=== PATIENT | male | born 1960 | race Caucasian/White ===

== ENCOUNTER 2021-09-30 07:19 | Day surgery (SDC) | payer MEDICARE, MEDICAID ==
[2021-09-22 10:12] LABS: BASOPHILS # (AUTO) 0.1 X10'3 (0-0.2); BASOPHILS % (AUTO) 1.2 % (0-1); EOSINOPHILS # (AUTO) 0.1 X10'3 (0-0.9); EOSINOPHILS % (AUTO) 2.6 % (0-6); LYMPHOCYTES # (AUTO) 1.6 X10'3 (1.1-4.8); LYMPHOCYTES % (AUTO) 29.8 % (21-51); MEAN CORPUSCULAR HEMOGLOBIN 28.6 PG (27.0-31.0); MEAN CORPUSCULAR HGB CONC 33.4 g/dL (33.0-36.5); MEAN CORPUSCULAR VOLUME 85.6 FL (78-98); MEAN PLATELET VOLUME 8.6 FL (7.4-10.4); MONOCYTES # (AUTO) 0.4 X10'3 (0-0.9); MONOCYTES % (AUTO) 6.9 % (2-12); NEUTROPHILS # (AUTO) 3.2 X10'3 (1.8-7.7); NEUTROPHILS % (AUTO) 59.5 % (42-75); PRE OP HEMATOCRIT 43.3 % (42.0-52.0); PRE OP HEMOGLOBIN 14.5 g/dL (14.0-17.9); PRE OP PLATELET COUNT 213 X10'3 (140-440); RED BLOOD COUNT 5.06 X10'6 (4.70-6.10); RED CELL DISTRIBUTION WIDTH 13.6 % (11.5-14.5)
[2021-09-22 10:24] LABS: ALBUMIN 3.8 G/DL (3.4-5.0); ALBUMIN/GLOBULIN RATIO 1.2 (1.1-1.5); ALKALINE PHOSPHATASE 44 IU/L (46-116); BLOOD UREA NITROGEN 23 MG/DL (7-18); BUN/CREATININE RATIO 17.6 (5.4-32.0); CHLORIDE 106 MMOL/L (99-107); CREATININE 1.31 MG/DL (0.60-1.10); PRE OP ALT 47 U/L (30-65); PRE OP ANION GAP 10 (8-16); PRE OP AST 29 U/L (10-37); PRE OP BILIRUB, TOTAL 0.4 MG/DL (0.0-1.0); PRE OP GLUCOSE 102 MG/DL (70-104); PRE OP POTASSIUM 4.3 MMOL/L (3.4-5.1); PRE OP SODIUM 143 MMOL/L (135-145); TOTAL CARBON DIOXIDE 27.3 MMOL/L (24-32); TOTAL PROTEIN 7.1 G/DL (6.4-8.2); eGFR 56 ML/MIN
[2021-09-22 10:38] LABS: CLARITY,URINE CLOUDY (Clear); COLOR,URINE YELLOW (Yellow); GLUCOSE, URINE NEGATIVE (Neg); KETONES,URINE NEGATIVE (Neg); LEUKOCYTE ESTERASE ,URINE NEGATIVE (Neg); NITRITES, URINE NEGATIVE (Neg); OCCULT BLOOD,URINE NEGATIVE (Neg); PROTEIN,URINE TRACE mg/dl (Neg)
[2021-09-22 10:41] LABS: UA COLLECTION TYPE VOIDED
[2021-09-22 10:44] LABS: SPERM MANY /HPF (NEGATIVE); SQUAMOUS EPITHELIAL CELL,UR MODERATE /LPF (FEW)
[2021-09-22 10:45] LABS: BACTERIA,URINE 1+ /HPF (Neg); RBC,URINE 0-2 /HPF (0-2)
[~2021-09-30] VITALS: Ht 175.3 cm; Wt 119.1 kg
[2021-09-30] VITALS (16 sets, daily range): BP systolic 94–127; BP diastolic 52–69
[~2021-09-30 07:19] MED LIST: BUPR-317 PO; DULO60CA65 PO; FENO160T PO; METF-1203 PO; TRAZ-256 PO; bacitracin 15gm ointment TP ONE; ceFAZolin inj. 2,000 MG in dextrose 5%-water 100 ML IV ONE; famotidine 20mg tablet PO ONE; ringers solution, lacted 1,000 ML IV SCH
[2021-09-30] MEDS ORDERED: meperidine/PF 25mg/ml syringe IV PRN ×3 (08:35)
[2021-09-30] MEDS ORDERED: morphine 2 MG/ML inj. syringe IV PRN (08:35)
[2021-09-30] MEDS ORDERED: morphine 4 MG/ML inj SYRINge IV PRN (08:35)
[2021-09-30] MEDS ORDERED: ringers solution, lacted 1,000 ML IV SCH (08:35)
[2021-09-30] MEDS ORDERED: proCHLORperazine 10 MG/2 ml inj IV PRN (08:35)
[2021-09-30] MEDS ORDERED: ondansetron/PF 4mg/2ml inj IV PRN (08:35)
[2021-09-30] MEDS ORDERED: BUPIVAcaine 0.5% inj/PF 0 ML ONE (10:16)
[2021-09-30] MEDS ORDERED: bacitracin 15gm ointment TP ONE (10:16)
[2021-09-30] MEDS ORDERED: MIDAZolam 1mg/ml 10ml vial ONE (10:56)
[2021-09-30] MEDS ORDERED: fentaNYL/PF 50MCG/1 ML 2ML syringe ONE (10:56)
[2021-09-30] MEDS ORDERED: ROPIVAcaine 0.5% (5mg/ml) 30ml vial ONE (10:59)
[2021-09-30] MEDS ORDERED: ROPIVAcaine 0.2%/PF PUMP/bolus 545 ML POPLITEAL SCH (12:25)
[2021-09-30] MEDS ORDERED: ROPIVAcaine 0.2% (10 MG/5 ML) BOLUS INJECTION POPLITEAL PRN (12:25)
[2021-09-30] MEDS ORDERED: BUPIVAcaine/PF 7.5mg/ml (0.75%) 10ml vial ONE (12:56)
--- NOTE | 2021-09-30 14:05 | NUR ---
PT ARRIVED TO RR VIA GURNEY, AWAKE, VSS, DENIES PAIN, SENSATION NOTED AT T-9 AREA, LEFT FOOT SPLINTED/FLACO WRAP-CDI, ELEVATED WITH ICE BEHIND KNEE, LEFT TOES NOTED TO BE PINK, WARM, +CAP REFILL, PIV 20G LFA, SCD TO RIGHT LEG, BS 88
--- NOTE | 2021-09-30 15:00 | NUR ---
PT SITTING UP, EATING LUNCH, ABLE TO WIGGLE TOES, SENSATION AT L3 AREA-LOWER THIGH, NO OTHER CHANGES IN ASSESSMENT.
--- NOTE | 2021-09-30 15:55 | NUR ---
PT SENSATION RETURN TO RIGHT LE, DENIES PAIN, VSS, ON-Q ATTACHED AND DISCUSSED WITH PT- ALL QUESTIONS ANSWERED, STARTED AT 2ML/HR.
--- NOTE | 2021-09-30 16:30 | NUR ---
PT UP TO VOID AND GET DRESSED, USING WALKER SAFELY, DENIES PAIN, AFTER HAVING FOOT IN DEPENDENT POSITION-BLEEDING WAS NOTED TO HEEL AREA, HELPED PT AMBULATE BACK TO BED-ELEVATED FOOT AND REINFORCED WITH 4X4'S AND ADDITIONAL FLACO WRAP.
--- NOTE | 2021-09-30 17:00 | NUR ---
PT'S RIDE HAS ARRIVED, VSS, STILL DENIES PAIN, ON-Q ATTACHED, PIV D/CD-CANULA INTACT, NO SIGNS OF BLEEDING FROM LEFT FOOT-EDUCATED REGARDING REINFORCEMENT AND ELEVATION, PT SENT HOME WITH [facility] FOR ELEVATION ASSISTANCE WELL. DISCUSSED D/C INSTRUCTIONS WITH PT-ALL QUESTIONS ANSWERED, TAKEN WITH ALL BELONGINGS VIA W/C TO VEHICLE FOR TRANSPORT HOME.
== END 2021-09-30 17:05 | disposition home or self-care (01) ==
LOC: PAS 07:19
PROVIDERS: ATTEND Podiatrist Foot & Ankle Surgery
DX: M21.42 Flat foot [pes planus] (acquired), left foot (principal); M19.072 Primary osteoarthritis, left ankle and foot; M21.072 Valgus deformity, not elsewhere classified, left ankle; M76.822 Posterior tibial tendinitis, left leg; S93.422A Sprain of deltoid ligament of left ankle, initial encounter; G47.30 Sleep apnea, unspecified; F32.A Depression, unspecified; E11.9 Type 2 diabetes mellitus without complications; E66.01 Morbid (severe) obesity due to excess calories; Z68.38 Body mass index [BMI] 38.0-38.9, adult; G89.18 Other acute postprocedural pain; Z20.822 Contact with and (suspected) exposure to COVID-19; Z79.899 Other long term (current) drug therapy; X58.XXXA Exposure to other specified factors, initial encounter; Y93.89 Activity, other specified; Y92.89 Other specified places as the place of occurrence of the external cause; Y99.8 Other external cause status
CPT/HCPCS: 27687; 27695; 28238; 28300; 28304; 36415; 64446; 64447; 73600; 76000; 76942; 80053; 81001; 82948; 85025; 87088; A6223; C1713; J0690; J2250; J2795; J3010; J3490; J7030; J7060; J7120; U0003; U0005; Z7506; Z7508; Z7512; A4618; A6253; A6449; A7000; S0020

== ENCOUNTER 2022-04-28 05:37 | Day surgery (SDC) | payer MEDICARE, MEDICAID ==
[2022-04-25 16:12] LABS: CLARITY,URINE CLOUDY (Clear); COLOR,URINE YELLOW (Yellow); GLUCOSE, URINE NEGATIVE (Neg); KETONES,URINE NEGATIVE (Neg); LEUKOCYTE ESTERASE ,URINE SMALL (Neg); NITRITES, URINE NEGATIVE (Neg); OCCULT BLOOD,URINE NEGATIVE (Neg); PH,URINE 6.5 (4.8-8.0); PROTEIN,URINE NEGATIVE (Neg)
[2022-04-25 16:16] LABS: UA COLLECTION TYPE CLN CATCH MIDSTREAM
[2022-04-25 16:22] LABS: BASOPHILS # (AUTO) 0.1 X10'3 (0-0.2); BASOPHILS % (AUTO) 0.9 % (0-1); EOSINOPHILS # (AUTO) 0.2 X10'3 (0-0.9); EOSINOPHILS % (AUTO) 2.7 % (0-6); HEMATOCRIT 41.8 % (42.0-52.0); LYMPHOCYTES # (AUTO) 1.4 X10'3 (1.1-4.8); LYMPHOCYTES % (AUTO) 21.4 % (21-51); MEAN CORPUSCULAR HEMOGLOBIN 28.8 PG (27.0-31.0); MEAN CORPUSCULAR HGB CONC 33.5 g/dL (33.0-36.5); MEAN PLATELET VOLUME 8.6 FL (7.4-10.4); MONOCYTES # (AUTO) 0.4 X10'3 (0-0.9); MONOCYTES % (AUTO) 5.6 % (2-12); NEUTROPHILS # (AUTO) 4.4 X10'3 (1.8-7.7); NEUTROPHILS % (AUTO) 69.4 % (42-75); PLATELET COUNT 204 X10'3 (140-440); RED BLOOD COUNT 4.86 X10'6 (4.70-6.10); RED CELL DISTRIBUTION WIDTH 14.1 % (11.5-14.5); WHITE BLOOD COUNT 6.4 X10'3 (4.5-11.0)
[2022-04-25 16:25] LABS: HEMOGLOBIN A1C 5.9 % (4.5-6.2)
[2022-04-25 16:26] LABS: ALBUMIN 3.6 G/DL (3.4-5.0); ALBUMIN/GLOBULIN RATIO 1.1 (1.1-1.5); ALKALINE PHOSPHATASE 56 IU/L (46-116); BLOOD UREA NITROGEN 16 MG/DL (7-18); BUN/CREATININE RATIO 14.2 (5.4-32.0); CALCIUM 9.3 MG/DL (8.5-10.1); CHLORIDE 107 MMOL/L (99-107); CREATININE 1.13 MG/DL (0.60-1.10); PRE OP ALT 31 U/L (30-65); PRE OP ANION GAP 6 (8-16); PRE OP AST 21 U/L (10-37); PRE OP BILIRUB, TOTAL 0.3 MG/DL (0.0-1.0); PRE OP GLUCOSE 135 MG/DL (70-104); PRE OP POTASSIUM 3.7 MMOL/L (3.4-5.1); PRE OP SODIUM 142 MMOL/L (135-145); TOTAL CARBON DIOXIDE 28.6 MMOL/L (24-32); TOTAL PROTEIN 6.9 G/DL (6.4-8.2); eGFR 66 ML/MIN
[2022-04-25 16:32] LABS: MUCUS STRANDS FEW /LPF (Neg); SQUAMOUS EPITHELIAL CELL,UR MODERATE /LPF (FEW); WBC CLUMPS,URINE MODERATE /HPF (NEGATIVE); WBC,URINE 30-50 /HPF (0-4)
[2022-04-25 16:33] LABS: BACTERIA,URINE FEW /HPF (Neg); RBC,URINE 0-2 /HPF (0-2)
[2022-04-25 16:34] LABS: TRANSITIONAL EPI CELLS,URINE FEW /HPF
[~2022-04-28] VITALS: Ht 175.3 cm; Wt 122.5 kg
[2022-04-28] VITALS (15 sets, daily range): BP systolic 90–132; BP diastolic 47–77
[~2022-04-28 05:37] MED LIST changes: +CELE50CA2 PO; +GABA-530; -bacitracin 15gm ointment TP ONE; -ceFAZolin inj. 2,000 MG in dextrose 5%-water 100 ML IV ONE; +ceFAZolin inj. 3,000 MG in normal saline 100ml IV soln 100 ML IV ONE
[2022-04-28] MEDS ORDERED: bacitracin 15gm ointment TP ONE (06:46)
[2022-04-28] MEDS ORDERED: BUPIVAcaine 0.5% inj/PF 30 ML ONE (06:46)
[2022-04-28] MEDS ORDERED: cloNIDine hcl/PF 100mcg/ml inj ONE (07:19)
[2022-04-28] MEDS ORDERED: propofol inj 20 ML IV ONE (07:22)
[2022-04-28] MEDS ORDERED: MIDAZolam 1 MG/ML 5ML VIAL ONE (07:22)
[2022-04-28] MEDS ORDERED: fentaNYL/PF 50MCG/1 ML 2ML syringe ONE (07:22)
[2022-04-28] MEDS ORDERED: sevoflurane 250ml liquid IH ONE (07:31)
[2022-04-28] MEDS ORDERED: rocuronium 10mg/ml inj IV ONE (07:43)
[2022-04-28] MEDS ORDERED: ROPIVAcaine 0.5% (5mg/ml) 30ml vial ONE (07:43)
[2022-04-28] MEDS ORDERED: ondansetron/PF 4mg/2ml inj ONE (09:28)
[2022-04-28] MEDS ORDERED: dexamethasone sod phosphate 4mg/ml inj. ONE (09:28)
[2022-04-28] MEDS ORDERED: sugammadex 200mg/2ml injection IV ONE (09:29)
--- NOTE | 2022-04-28 09:42 | NUR ---
Received from OR via elsy , accompanied by Anesthesiologist DR WELLER and report given by Anesthesiolgist. PT PRESENTS WITH PIV 20G LEFT HAND, RIGHT FOOT/ANKLE SPLINT CDI, VSS. Addendum: 04/28/22 at 0954 by Deedee Stewart RN, RN Amended: Links added.
[2022-04-28] MEDS ORDERED: ondansetron/PF 4mg/2ml inj IV PRN (09:50)
[2022-04-28] MEDS ORDERED: proCHLORperazine 10 MG/2 ml inj IV PRN (09:50)
[2022-04-28] MEDS ORDERED: morphine 4 MG/ML inj SYRINge IV PRN (09:50)
[2022-04-28] MEDS ORDERED: morphine 2 MG/ML inj. syringe IV PRN (09:50)
[2022-04-28] MEDS ORDERED: ringers solution, lacted 1,000 ML IV SCH (09:50)
[2022-04-28] MEDS ORDERED: meperidine/PF 25mg/ml syringe IV PRN ×3 (09:50)
--- NOTE | 2022-04-28 11:51 | NUR ---
PT GIVVEN INCENTIVE SPIROMETER WITH DIRECTION ON HOW TO USE. PT DEMONSTRATED BACK USE. PT ADVISED TO USE 10X PER HOUR.
--- NOTE | 2022-04-28 12:02 | NUR ---
. I HAVE REVIEWED D/C INSTRUCTIONS WITH PATIENT and they have verbalized understanding patient d/c home with all belongings and family gave transport home. Addendum: 04/28/22 at 1221 by Deedee Stewart RN, RN Amended: Links added.
== END 2022-04-28 12:02 | disposition home or self-care (01) ==
LOC: PAS 05:37
PROVIDERS: ATTEND Podiatrist Foot & Ankle Surgery
DX: M21.41 Flat foot [pes planus] (acquired), right foot (principal); Z79.899 Other long term (current) drug therapy; G89.18 Other acute postprocedural pain; M19.072 Primary osteoarthritis, left ankle and foot; M19.071 Primary osteoarthritis, right ankle and foot; Z79.82 Long term (current) use of aspirin; Z98.890 Other specified postprocedural states
CPT/HCPCS: 27687; 28238; 28300; 36415; 64447; 64450; 73620; 76942; 80053; 81001; 82948; 83036; 85025; 87088; 93005; A6223; C1713; J0690; J0735; J1100; J2250; J2405; J2704; J2795; J3010; J3490; J7030; J7120; S0020; Z7506; Z7508; Z7512; 76000; A4215; A4618; A6253; A6449; A7000

== ENCOUNTER 2022-11-16 23:27 | Emergency (ER) | payer MEDICARE, MEDICAID ==
[~2022-11-16] VITALS: Ht 175.3 cm; Wt 127.3 kg
[~2022-11-16 23:27] MED LIST changes: -ceFAZolin inj. 3,000 MG in normal saline 100ml IV soln 100 ML IV ONE; -famotidine 20mg tablet PO ONE; -ringers solution, lacted 1,000 ML IV SCH
[2022-11-16 23:44] LABS: BASOPHILS # (AUTO) 0.1 X10'3 (0-0.2); BASOPHILS % (AUTO) 0.9 % (0-1); EOSINOPHILS # (AUTO) 0.1 X10'3 (0-0.9); EOSINOPHILS % (AUTO) 1.5 % (0-6); HEMATOCRIT 43.7 % (42.0-52.0); HEMOGLOBIN 14.6 g/dl (14.0-17.9); LYMPHOCYTES # (AUTO) 1.7 X10'3 (1.1-4.8); LYMPHOCYTES % (AUTO) 25.7 % (21-51); MEAN CORPUSCULAR HEMOGLOBIN 28.6 PG (27.0-31.0); MEAN CORPUSCULAR HGB CONC 33.4 g/dL (33.0-36.5); MEAN CORPUSCULAR VOLUME 85.6 FL (78-98); MEAN PLATELET VOLUME 9.1 FL (7.4-10.4); MONOCYTES # (AUTO) 0.5 X10'3 (0-0.9); MONOCYTES % (AUTO) 7.1 % (2-12); NEUTROPHILS # (AUTO) 4.4 X10'3 (1.8-7.7); NEUTROPHILS % (AUTO) 64.8 % (42-75); PLATELET COUNT 177 X10'3 (140-440); RED BLOOD COUNT 5.11 X10'6 (4.70-6.10); RED CELL DISTRIBUTION WIDTH 14.5 % (11.5-14.5); WHITE BLOOD COUNT 6.8 X10'3 (4.5-11.0)
[2022-11-17] LABS: ALANINE AMINOTRANSFERASE 35 U/L (12-78); ALBUMIN 3.7 G/DL (3.4-5.0); ALBUMIN/GLOBULIN RATIO 1.3 (1.1-1.5); ALKALINE PHOSPHATASE 70 IU/L (46-116); ANION GAP 13 (8-16); ASPARTATE AMINO TRANSFERASE 24 U/L (10-37); BILIRUBIN,TOTAL 0.4 MG/DL (0.1-1.0); BLOOD UREA NITROGEN 22 MG/DL (7-18); BUN/CREATININE RATIO 19.6 (10.0-20.0); CALCIUM 9.1 MG/DL (8.5-10.1); CHLORIDE 106 MMOL/L (99-107); CREATININE 1.12 MG/DL (0.60-1.10); GLUCOSE 181 MG/DL (70-104); POTASSIUM 3.4 MMOL/L (3.5-5.1); SODIUM 143 MMOL/L (135-145); TOTAL CARBON DIOXIDE 24.1 MMOL/L (24-32); TOTAL PROTEIN 6.5 G/DL (6.4-8.2); eGFR 67 ML/MIN
[2022-11-17 00:14] LABS: ETHANOL < 0.010 GM/DL (0.0-0.010)
[2022-11-17] MEDS ORDERED: potassium Cl 20 mEq SR tablet PO STA (00:30)
[2022-11-17] MEDS: quetiapine 100mg tablet PO SCH ×2 (00:42→08:00)
[2022-11-17] MEDS ORDERED: BUPR300T53 PO (01:02)
[2022-11-17] MEDS ORDERED: [UNRECOGNIZED DRUG - CODE] OP (01:02)
[2022-11-17] MEDS ORDERED: DICL75TA5 (01:02)
[2022-11-17] MEDS ORDERED: GABA-530 PO (01:11)
--- NOTE | 2022-11-17 01:15 | NUR ---
62 year old male brought in by EMS after making a statement to his parents to "hide all the pills, I don't know if I will take them." Pt was in court today and now has a restraining order against him from his ex-girlfriend and he had to leave their home. On assessment he denies current S/I, stating "I don't know why I am here." He denies any history of prior suicide attempts, does have hx of depression and sees Dr. Soto at [facility][1]. I explained to him that he will be seen by [facility][1] and they will decide his disposition. He verbalized understanding.
--- NOTE | 2022-11-17 01:32 | NUR ---
Packet faxed to [facility] office, U/A is still pending.
[2022-11-17] MEDS ORDERED: DICL75TA5 PO (01:53)
[2022-11-17] MEDS ORDERED: traZODone 50mg tablet PO PRN (02:05)
[2022-11-17] MEDS ORDERED: naphazoline/pheniramine eye 1 DROP BOTTLE EACHEYE PRN (02:10)
--- NOTE | 2022-11-17 02:46 | NUR ---
Pt awake, says he is normally is awake at this time, is complaining about eye dryness, will obtain Visine that is ordered.
[2022-11-17] MEDS ORDERED: polyvinyl alcohol ophthalmic drops 15ml bottle EACHEYE PRN (02:50)
[2022-11-17 04:52] VITALS: BP 118/71
--- NOTE | 2022-11-17 04:58 | NUR ---
Pt finally fell asleep around 0300, he continues to sleep, respirations are even and unlabored, no signs of distress.
--- NOTE | 2022-11-17 06:40 | NUR ---
Received report from NOC nurse. Pt awake at this time. Pt denies SI at this time. Pt up with assistance to the restroom. Pt states his right ankle has been broken been since May and he is scheduled for an EKG tomorrow at Dr. [facility] office for post-op. Right ankle is swollen with c/o pain 11/05. Nurse to speak with doctor to see about obtaining an X-ray.
[2022-11-17 07:21] LABS: URINE AMPHETAMINE SCREEN NEGATIVE (Neg); URINE BARBITUATE SCREEN NEGATIVE (Neg); URINE BENZODIAZEPINES SCREEN NEGATIVE (Neg); URINE CANNABINOID SCREEN NEGATIVE (Neg); URINE COCAINE SCREEN NEGATIVE (Neg); URINE METHADONE SCREEN NEGATIVE (Neg); URINE OPIATE SCREEN NEGATIVE (Neg); URINE PHENCYCLIDINE SCREEN NEGATIVE (Neg)
--- NOTE | 2022-11-17 07:49 | NUR ---
Pt. adamently stated he was not suicidal approx. 15 minute ago. Pt then was heard crying quite loudly, when nurse asked if he is having SI he now states, "Im not doing to well, yes I am."
--- NOTE | 2022-11-17 07:53 | NUR ---
X-ray to right ankle obtained.
[2022-11-17] MEDS ORDERED: metFORMIN 500mg tablet PO SCH (08:00)
[2022-11-17] MEDS ORDERED: DICLOFENAC SODIUM PO SCH (08:00)
[2022-11-17] MEDS ORDERED: buPROPion SR 150mg tablet PO SCH (08:00)
[2022-11-17] MEDS ORDERED: duloxetine 30mg CAPSULE.DR PO SCH (08:00)
--- NOTE | 2022-11-17 08:15 | NUR ---
Mother and father visiting at bedside.
--- NOTE | 2022-11-17 09:57 | NUR ---
Pt ate breakfast at bedside, parents still visiting at bedside.
[2022-11-17] MEDS ORDERED: ibuprofen tablet 400 MG TABLET PO ONE (10:45)
--- NOTE | 2022-11-17 10:54 | NUR ---
X-ray to right ankle negative for fracture. Motrin administered for c/o CODY. Parents still visiting at bedside.
--- NOTE | 2022-11-17 11:02 | NUR ---
Pt being evaluated by SCM.
--- NOTE | 2022-11-17 11:43 | NUR ---
Pt hold not being upheld.
== END 2022-11-17 11:52 | disposition home or self-care (01) ==
LOC: ER 23:27
DX: F32.A Depression, unspecified (principal); Z20.822 Contact with and (suspected) exposure to COVID-19; Z79.899 Other long term (current) drug therapy
CPT/HCPCS: 36415; 73610; 80053; 80305; 80320; 84443; 85025; 87811; 99285

== ENCOUNTER 2022-12-14 11:02 | Inpatient (IN) | payer MEDICARE, MEDICAID ==
[2022-12-12 11:17] LABS: CLARITY,URINE CLEAR (Clear); COLOR,URINE YELLOW (Yellow); GLUCOSE, URINE NEGATIVE (Neg); KETONES,URINE NEGATIVE (Neg); LEUKOCYTE ESTERASE ,URINE NEGATIVE (Neg); NITRITES, URINE NEGATIVE (Neg); OCCULT BLOOD,URINE NEGATIVE (Neg); PROTEIN,URINE NEGATIVE (Neg); UROBILINOGEN,URINE 0.2 E.U/dL (0.2-1.0)
[2022-12-12 11:18] LABS: BASOPHILS # (AUTO) 0.1 X10'3 (0-0.2); BASOPHILS % (AUTO) 0.8 % (0-1); EOSINOPHILS # (AUTO) 0.1 X10'3 (0-0.9); LYMPHOCYTES # (AUTO) 1.2 X10'3 (1.1-4.8); LYMPHOCYTES % (AUTO) 15.6 % (21-51); MEAN CORPUSCULAR HEMOGLOBIN 28.9 PG (27.0-31.0); MEAN CORPUSCULAR HGB CONC 33.8 g/dL (33.0-36.5); MEAN CORPUSCULAR VOLUME 85.4 FL (78-98); MEAN PLATELET VOLUME 9.1 FL (7.4-10.4); MONOCYTES # (AUTO) 0.5 X10'3 (0-0.9); MONOCYTES % (AUTO) 6.3 % (2-12); NEUTROPHILS # (AUTO) 5.9 X10'3 (1.8-7.7); NEUTROPHILS % (AUTO) 76.3 % (42-75); PRE OP HEMATOCRIT 45.8 % (42.0-52.0); PRE OP HEMOGLOBIN 15.5 g/dL (14.0-17.9); PRE OP PLATELET COUNT 203 X10'3 (140-440); RED BLOOD COUNT 5.36 X10'6 (4.70-6.10); RED CELL DISTRIBUTION WIDTH 14.5 % (11.5-14.5)
[2022-12-12 11:27] LABS: ALBUMIN 3.9 G/DL (3.4-5.0); ALBUMIN/GLOBULIN RATIO 1.3 (1.1-1.5); ALKALINE PHOSPHATASE 67 IU/L (46-116); BLOOD UREA NITROGEN 19 MG/DL (7-18); BUN/CREATININE RATIO 19.8 (10.0-20.0); CALCIUM 9.3 MG/DL (8.5-10.1); CHLORIDE 106 MMOL/L (99-107); CREATININE 0.96 MG/DL (0.60-1.10); PRE OP ALT 32 U/L (30-65); PRE OP ANION GAP 9 (8-16); PRE OP AST 21 U/L (10-37); PRE OP BILIRUB, TOTAL 0.4 MG/DL (0.0-1.0); PRE OP GLUCOSE 141 MG/DL (70-104); PRE OP POTASSIUM 3.8 MMOL/L (3.4-5.1); PRE OP SODIUM 139 MMOL/L (135-145); TOTAL CARBON DIOXIDE 23.9 MMOL/L (24-32); eGFR 80 ML/MIN
[2022-12-12 11:44] LABS: UA COLLECTION TYPE CLN CATCH MIDSTREAM
[2022-12-14] VITALS (16 sets, daily range): BP systolic 99–129; BP diastolic 52–85; PULSE 60–74; RESP 15–20; TEMP 98–98.7; O2SAT 92–98
[~2022-12-14] VITALS: Ht 175.3 cm; Wt 127.0 kg
[~2022-12-14 11:02] MED LIST changes: -BUPR-317 PO; +BUPR300T53 PO; -CELE50CA2 PO; +CHOL20002 PO; +DICL75TA5 PO; -GABA-530; +HYDR25TA5 PO; +ceFAZolin inj. 3,000 MG in normal saline 100ml IV soln 100 ML IV ONE; +famotidine 20mg tablet PO ONE
[2022-12-14] MEDS: ringers solution, lacted 1,000 ML IV SCH ×4 (11:49→20:36)
[2022-12-14] MEDS ORDERED: BUPIVAcaine/PF 2.5 mg/ml (0.25%) 30ml vial ONE ×2 (12:49→13:05)
[2022-12-14] MEDS ORDERED: BUPIVACAINE liposomal/PF 13.3 MG/ML vial IM ONE (12:50)
[2022-12-14] MEDS ORDERED: bacitracin 15gm ointment TP ONE (13:05)
[2022-12-14] MEDS ORDERED: fentaNYL/PF 50MCG/1 ML 2ML syringe ONE (13:09)
[2022-12-14] MEDS ORDERED: midazolam 1 mg/ML 2ml injection ONE (13:10)
[2022-12-14] MEDS ORDERED: sevoflurane 250ml liquid IH ONE (13:11)
[2022-12-14] MEDS ORDERED: dexamethasone sod phosphate 10mg/ml inj ONE (13:11)
[2022-12-14] MEDS ORDERED: ondansetron/PF 4mg/2ml inj ONE (13:47)
[2022-12-14] MEDS ORDERED: propofol inj 20 ML IV ONE (13:47)
[2022-12-14] MEDS ORDERED: LIDOcaine 2% (20mg/ml) 5ml vial ONE (13:47)
[2022-12-14] MEDS ORDERED: acetaminophen 1,000mg/100ml IV 100 ML IV ONE (13:55)
[2022-12-14] MEDS ORDERED: ringers solution, lacted 1,000 ML IV SCH ×2 (14:15→14:20)
[2022-12-14] MEDS ORDERED: ondansetron/PF 4mg/2ml inj IV PRN ×3 (14:15→15:50)
[2022-12-14] MEDS ORDERED: ROPIVAcaine 0.2% (10 MG/5 ML) BOLUS INJECTION POPLITEAL PRN (14:15)
[2022-12-14] MEDS ORDERED: morphine 4 MG/ML inj SYRINge IV PRN (14:20)
[2022-12-14] MEDS ORDERED: hydrALAZINE 20mg/ml inj. IV PRN (14:20)
[2022-12-14] MEDS ORDERED: morphine 2 MG/ML inj. syringe IV PRN (14:20)
[2022-12-14] MEDS ORDERED: enalaprilat dihydrate 2.5mg/2ml vial IV PRN (14:20)
[2022-12-14] MEDS ORDERED: fentaNYL/PF 50MCG/1 ML 2ML syringe IV PRN ×2 (14:20)
[2022-12-14] MEDS ORDERED: vancomycin 1,000mg inj ONE (15:25)
--- NOTE | 2022-12-14 15:48 | NUR ---
Received from OR via SURGICAL BED , accompanied by Anesthesiologist BHAVNA and report given by Anesthesiolgist. PATIENT WITH SPLINT TO RIGHT LE THAT IS CDI. TOES EXPOSED WITH + CAP REFILL IN ALL TOES. DECREASED SENSATION 2' NERVE BLOCKS. ON Q SITE TO RIGHT THIGH AREA. ATTACHED ON Q UPON ARRIVAL AT 2CC/HR. STATES "NUMB PAIN" ON Q IN USE AT THIS TIME BY PATIENT SCD TO LEFT LE. VSS AT THIS TIME. WILL CONTINUE TO ASSESS AND TREAT FOR PAIN NEEDED. Addendum: 12/14/22 at 1603 by Deedee Stewart RN, RN Amended: Links added.
[2022-12-14] MEDS ORDERED: diphenhydrAMINE 25mg capsule PO PRN ×2 (15:50)
[2022-12-14] MEDS ORDERED: HYDROcodone/acetaminophen 10/325mg tab PO PRN ×2 (15:50)
[2022-12-14] MEDS ORDERED: acetaminophen 325mg tablet PO PRN (15:50)
[2022-12-14] MEDS ORDERED: magnesium hydroxide 30ml (MOM) UD suspension PO PRN (15:50)
[2022-12-14] MEDS ORDERED: naloxone 0.4 mg/ml inj IV PRN (15:50)
[2022-12-14] MEDS ORDERED: bisacodyl 10mg suppository rectal RC PRN (15:50)
[2022-12-14] MEDS: ROPIVAcaine 0.2%/PF PUMP/bolus 545 ML POPLITEAL SCH (15:54)
--- NOTE | 2022-12-14 16:38 | NUR ---
Report called to receiving Leonard JOLLY. Transferred via HOSPITAL BED TO ROOM 4012B BY SHERRI JOLLY. BED IN LOW LOCKED POSTION WITH CALL YOVANI SOTELO. PT HOOKED UP TO BEDSIDE MONITOR. CHART TAKEN TO NURSES STATION. TWO BAGS AND CRUTCHES TO ROOM WITH PT. Special Issues communicated to receiving nurse. Addendum: 12/14/22 at 1646 by Deedee Stewart RN RN Amended: Links added.
--- NOTE | 2022-12-14 18:00 | NUR ---
Patient in room ORTHO 4012. I have received report from SHANAE Ahn and had the opportunity to ask questions and assume patient care.
--- NOTE | 2022-12-14 18:20 | NUR ---
Report to Yaneth JOLLY
[2022-12-14] MEDS: sennosides 8.6mg tablet PO SCH (20:35)
[2022-12-15] VITALS (9 sets, daily range): BP systolic 112–152; BP diastolic 55–82; PULSE 57–76; RESP 18–20; TEMP 97.7–98.6; O2SAT 93–97
--- NOTE | 2022-12-15 03:47 | NUR ---
pt refused to have ice to r foot. states hes "allergic to cold". Addendum: 12/15/22 at 0348 by Yaneth Jamil RN Amended: Links added.
--- NOTE | 2022-12-15 03:49 | NUR ---
refused ice. Addendum: 12/15/22 at 0349 by Yaneth Jamil RN Amended: Links added.
--- NOTE | 2022-12-15 06:10 | NUR ---
Problems reprioritized. Patient report given, questions answered & plan of care reviewed with SHANAE Bonilla.
--- NOTE | 2022-12-15 06:30 | NUR ---
Patient in room ORTHO 4012. I have received report from Yaneth and had the opportunity to ask questions and assume patient care.
[2022-12-15] MEDS: aspirin 325mg tablet PO SCH (07:35)
--- NOTE | 2022-12-15 18:26 | NUR ---
Problems reprioritized. Patient report given, questions answered & plan of care reviewed with
--- NOTE | 2022-12-15 19:31 | NUR ---
Patient in room ORTHO 4012. I have received report from Irene JOLLY and had the opportunity to ask questions and assume patient care.
[2022-12-15] MEDS: sennosides 8.6mg tablet PO SCH (19:47)
[2022-12-15] MEDS ORDERED: ketorolac trometh. 30mg/ml inj. IM PRN (21:15)
[2022-12-15] MEDS ORDERED: ketorolac trometh. 30mg/ml inj. IV PRN (21:30)
[2022-12-15] MEDS ORDERED: traZODone 50mg tablet PO PRN (21:40)
[2022-12-15] MEDS: ketorolac tromethamine 15mg/ml inj. IV PRN (21:42)
[2022-12-15] MEDS: oxyCODONE/APAP 10/325mg tablet PO PRN (23:02)
[2022-12-16] VITALS (7 sets, daily range): BP systolic 123–155; BP diastolic 62–79; PULSE 61–82; RESP 16–20; TEMP 96.9–99.1; O2SAT 96–98
[2022-12-16] MEDS: ketorolac tromethamine 15mg/ml inj. IV PRN ×2 (03:41→09:20)
--- NOTE | 2022-12-16 04:55 | NUR ---
Pt pain has been controlled somewhat. He states " pain is so bad, I just want the pain meds to knock me out"
[2022-12-16] MEDS: oxyCODONE/APAP 10/325mg tablet PO PRN (04:58)
--- NOTE | 2022-12-16 06:08 | NUR ---
Problems reprioritized. Patient report given, questions answered & plan of care reviewed with Belen JOLLY.
[2022-12-16] MEDS: DICLOFENAC SODIUM PO SCH (08:00)
[2022-12-16] MEDS: aspirin 325mg tablet PO SCH (09:18)
[2022-12-16] MEDS: duloxetine 30mg CAPSULE.DR PO SCH (09:18)
[2022-12-16] MEDS: HYDROchlorothiazide 25mg tablet PO SCH (09:19)
[2022-12-16] MEDS: metFORMIN 500mg tablet PO SCH ×2 (09:19→21:06)
[2022-12-16] MEDS: cholecalciferol (vitamin D3) 1,000 unit (25mcg) tablet PO SCH (09:19)
[2022-12-16] MEDS: buPROPion SR 150mg tablet PO SCH ×2 (09:19→21:02)
[2022-12-16] MEDS: ROPIVAcaine 0.2%/PF PUMP/bolus 545 ML POPLITEAL SCH (13:05)
--- NOTE | 2022-12-16 18:04 | NUR ---
Pt's ankle/foot dressing noted to have some sanguinous drainage on it. Pt. under the impression the surgeon was coming today to replace an FLACO bandage which was previously removed r/t pain. Dressing reinforced and Surgeon called twice. Left a VM. Called office and used answering service. Awaiting reply.
--- NOTE | 2022-12-16 18:54 | NUR ---
Patient in room ORTHO 4012. I have received report from WILTON JOLLY and had the opportunity to ask questions and assume patient care.
[2022-12-16] MEDS: sennosides 8.6mg tablet PO SCH (21:07)
[2022-12-16] MEDS: fenofibrate 145mg tablet PO SCH (21:07)
--- NOTE | 2022-12-17 03:54 | NUR ---
JERROD documentation: I have reviewed and agree with all interventions, assessments performed and documented by MELISSA ELDER.
[2022-12-17 04:46] LABS: ALBUMIN 3.1 G/DL (3.4-5.0); ANION GAP 9 (8-16); BLOOD UREA NITROGEN 17 MG/DL (7-18); BUN/CREATININE RATIO 19.3 (10.0-20.0); CALCIUM 8.5 MG/DL (8.5-10.1); CHLORIDE 103 MMOL/L (99-107); CREATININE 0.88 MG/DL (0.60-1.10); GLUCOSE 133 MG/DL (70-104); POTASSIUM 3.8 MMOL/L (3.5-5.1); SODIUM 139 MMOL/L (135-145); TOTAL CARBON DIOXIDE 26.6 MMOL/L (24-32); eGFR 88 ML/MIN
[2022-12-17 05:13] LABS: BASOPHILS # (AUTO) 0.1 X10'3 (0-0.2); MEAN CORPUSCULAR VOLUME 85.4 FL (78-98); MONOCYTES # (AUTO) 0.5 X10'3 (0-0.9); NEUTROPHILS # (AUTO) 5.6 X10'3 (1.8-7.7)
[2022-12-17 05:17] LABS: BASOPHILS % (AUTO) 0.6 % (0-1); EOSINOPHILS # (AUTO) 0.2 X10'3 (0-0.9); HEMATOCRIT 39.8 % (42.0-52.0); LYMPHOCYTES # (AUTO) 1.4 X10'3 (1.1-4.8); LYMPHOCYTES % (AUTO) 18.5 % (21-51); MEAN CORPUSCULAR HGB CONC 35.1 g/dL (33.0-36.5); MEAN PLATELET VOLUME 9.5 FL (7.4-10.4); MONOCYTES % (AUTO) 6.8 % (2-12); NEUTROPHILS % (AUTO) 72.1 % (42-75); PLATELET COUNT 170 X10'3 (140-440); RED BLOOD COUNT 4.66 X10'6 (4.70-6.10); RED CELL DISTRIBUTION WIDTH 14.4 % (11.5-14.5); WHITE BLOOD COUNT 7.8 X10'3 (4.5-11.0)
--- NOTE | 2022-12-17 06:16 | NUR ---
Problems reprioritized. Patient report given, questions answered & plan of care reviewed with ALMAS JOLLY.
--- NOTE | 2022-12-17 06:43 | NUR ---
Patient in room ORTHO 4012. I have received report from Rajani JOLLY and had the opportunity to ask questions and assume patient care.
[2022-12-17 07:17] VITALS: BP 156/77; PULSE 16; RESP 68; TEMP 97.5; O2SAT 95
[2022-12-17] MEDS: DICLOFENAC SODIUM PO SCH (08:00)
[2022-12-17] MEDS: cholecalciferol (vitamin D3) 1,000 unit (25mcg) tablet PO SCH (08:42)
[2022-12-17] MEDS: metFORMIN 500mg tablet PO SCH ×2 (08:42→19:50)
[2022-12-17] MEDS: aspirin 325mg tablet PO SCH (08:42)
[2022-12-17] MEDS: duloxetine 30mg CAPSULE.DR PO SCH (08:45)
[2022-12-17] MEDS: buPROPion SR 150mg tablet PO SCH ×2 (08:45→19:50)
[2022-12-17] MEDS: HYDROchlorothiazide 25mg tablet PO SCH (08:45)
[2022-12-17 10:00] VITALS: BP 147/84; PULSE 71; RESP 20; TEMP 98.4; O2SAT 94
[2022-12-17 14:02] VITALS: O2SAT 94
--- NOTE | 2022-12-17 16:49 | NUR ---
patient not c/o pain seen by Dr Gonzalez, no new orders. Awaiting rehab. Worked with PT today, see note.
[2022-12-17 18:00] VITALS: BP 151/79; PULSE 74; RESP 16; TEMP 99.5; O2SAT 97
--- NOTE | 2022-12-17 18:35 | NUR ---
Problems reprioritized. Patient report given, questions answered & plan of care reviewed with ayesha JOLLY.
[2022-12-17] MEDS: sennosides 8.6mg tablet PO SCH (19:50)
[2022-12-17] MEDS: fenofibrate 145mg tablet PO SCH (19:50)
[2022-12-17] MEDS: ROPIVAcaine 0.2%/PF PUMP/bolus 545 ML POPLITEAL SCH (19:52)
[2022-12-17 22:00] VITALS: BP 144/87; PULSE 66; RESP 16; TEMP 97.4; O2SAT 95
[2022-12-18 06:00] VITALS: BP 128/68; PULSE 67; RESP 16; TEMP 97.4; O2SAT 96
--- NOTE | 2022-12-18 06:19 | NUR ---
Problems reprioritized. Patient report given, questions answered & plan of care reviewed with SHANAE Mi.
--- NOTE | 2022-12-18 06:50 | NUR ---
Patient in room ORTHO 4012B. I have received report from SHANAE HARPER and had the opportunity to ask questions and assume patient care.
[2022-12-18] MEDS: duloxetine 30mg CAPSULE.DR PO SCH (09:46)
[2022-12-18] MEDS: buPROPion SR 150mg tablet PO SCH ×2 (09:46→20:04)
[2022-12-18] MEDS: metFORMIN 500mg tablet PO SCH ×2 (09:46→20:04)
[2022-12-18] MEDS: aspirin 325mg tablet PO SCH (09:46)
[2022-12-18] MEDS: HYDROchlorothiazide 25mg tablet PO SCH (09:46)
[2022-12-18] MEDS: cholecalciferol (vitamin D3) 1,000 unit (25mcg) tablet PO SCH (09:46)
[2022-12-18] MEDS: DICLOFENAC SODIUM PO SCH (09:48)
[2022-12-18] MEDS: oxyCODONE/APAP 10/325mg tablet PO PRN (09:48)
[2022-12-18 10:00] VITALS: BP 133/73; PULSE 67; RESP 16; TEMP 98.5; O2SAT 96
[2022-12-18 18:00] VITALS: BP 145/71; PULSE 65; RESP 16; TEMP 98.1; O2SAT 98
--- NOTE | 2022-12-18 18:14 | NUR ---
Problems reprioritized. Patient report given, questions answered & plan of care reviewed with SHANAE HARPER.
[2022-12-18] MEDS: ketorolac tromethamine 15mg/ml inj. IV PRN (18:56)
[2022-12-18] MEDS: fenofibrate 145mg tablet PO SCH (20:03)
[2022-12-18] MEDS: sennosides 8.6mg tablet PO SCH (20:04)
[2022-12-18 22:00] VITALS: BP 139/89; PULSE 69; RESP 18; TEMP 97.5; O2SAT 97
[2022-12-19] MEDS: ketorolac tromethamine 15mg/ml inj. IV PRN (05:36)
[2022-12-19 06:00] VITALS: BP 110/53; PULSE 71; RESP 18; TEMP 98; O2SAT 98
--- NOTE | 2022-12-19 06:34 | NUR ---
Problems reprioritized. Patient report given, questions answered & plan of care reviewed with SHANAE Deng.
--- NOTE | 2022-12-19 06:40 | NUR ---
Patient in room ORTHO 4012. I have received report from Sylvie JOLLY and had the opportunity to ask questions and assume patient care.
[2022-12-19 07:30] VITALS: RESP 16
[2022-12-19] MEDS: aspirin 325mg tablet PO SCH (07:46)
[2022-12-19] MEDS: cholecalciferol (vitamin D3) 1,000 unit (25mcg) tablet PO SCH (07:46)
[2022-12-19] MEDS: buPROPion SR 150mg tablet PO SCH ×2 (07:46→20:19)
[2022-12-19] MEDS: metFORMIN 500mg tablet PO SCH ×2 (07:46→20:19)
[2022-12-19] MEDS: HYDROchlorothiazide 25mg tablet PO SCH (07:46)
[2022-12-19] MEDS: duloxetine 30mg CAPSULE.DR PO SCH (07:47)
[2022-12-19] MEDS: DICLOFENAC SODIUM PO SCH (07:47)
[2022-12-19 10:00] VITALS: BP 142/75; PULSE 74; RESP 16; TEMP 98.9; O2SAT 96
--- NOTE | 2022-12-19 13:39 | NUR ---
Initial: Pt post-op day 5 s/p R foot calcaneal osteotomy revision per EMR. PO 100% avg carb controlled diet meeting protein and ~86% kcal estimated needs given stature. Noted last A1C 5.9% 03/2022 in EMR; BRONWYN d/w RAINA and RN regarding new A1C this admit since carb controlled diet restriction may not be appropriate. In meantime, will send double protein TIDWM for satiety-dietary notified. LBM 12/18 per EMR. Will continue to follow. Rec: 1. continue carb controlled diet; monitor for A1C results and transition to heart healthy diet without carb restriction as necessary 2. double protein TIDWM for satiety 3. routine vitamin D3 per MD 4. routine bowel care 5. weekly wt Addendum: 12/19/22 at [address] Amended: Links added.
[2022-12-19 18:00] VITALS: BP 155/82; PULSE 80; RESP 18; TEMP 98.6; O2SAT 98
--- NOTE | 2022-12-19 18:30 | NUR ---
Patient in room ORTHO 4012. I have received report from Sowmya Barker and had the opportunity to ask questions and assume patient care.
--- NOTE | 2022-12-19 18:33 | NUR ---
Report given to Gela JOLLY
[2022-12-19 19:50] VITALS: RESP 18; O2SAT 98
[2022-12-19] MEDS: sennosides 8.6mg tablet PO SCH (20:19)
[2022-12-19] MEDS: fenofibrate 145mg tablet PO SCH (20:20)
[2022-12-19 22:00] VITALS: BP 147/74; PULSE 67; RESP 18; TEMP 97.9; O2SAT 96
[2022-12-20] VITALS (7 sets, daily range): BP systolic 118–140; BP diastolic 73–77; PULSE 68–82; RESP 15–18; TEMP 97.3–98.3; O2SAT 95–96
[2022-12-20 06:41] LABS: BASOPHILS % (AUTO) 0.6 % (0-1); EOSINOPHILS # (AUTO) 0.3 X10'3 (0-0.9); EOSINOPHILS % (AUTO) 3.6 % (0-6); HEMATOCRIT 45.9 % (42.0-52.0); HEMOGLOBIN 15.6 g/dl (14.0-17.9); LYMPHOCYTES # (AUTO) 1.3 X10'3 (1.1-4.8); LYMPHOCYTES % (AUTO) 17.3 % (21-51); MEAN CORPUSCULAR HEMOGLOBIN 29.1 PG (27.0-31.0); MEAN CORPUSCULAR HGB CONC 34.1 g/dL (33.0-36.5); MEAN CORPUSCULAR VOLUME 85.2 FL (78-98); MEAN PLATELET VOLUME 8.6 FL (7.4-10.4); MONOCYTES # (AUTO) 0.5 X10'3 (0-0.9); NEUTROPHILS # (AUTO) 5.5 X10'3 (1.8-7.7); NEUTROPHILS % (AUTO) 71.5 % (42-75); PLATELET COUNT 208 X10'3 (140-440); RED BLOOD COUNT 5.38 X10'6 (4.70-6.10); RED CELL DISTRIBUTION WIDTH 14.4 % (11.5-14.5); WHITE BLOOD COUNT 7.7 X10'3 (4.5-11.0)
[2022-12-20 06:53] LABS: HEMOGLOBIN A1C 6.1 % (4.5-6.2)
--- NOTE | 2022-12-20 06:57 | NUR ---
Patient in room ORTHO 4012. I have received report from Gela JOLLY and had the opportunity to ask questions and assume patient care. No changes.
--- NOTE | 2022-12-20 07:00 | NUR ---
Problems reprioritized. Patient report given, questions answered & plan of care reviewed with Sowmya JOLLY..
[2022-12-20 07:05] LABS: ALANINE AMINOTRANSFERASE 21 U/L (12-78); ALBUMIN 3.3 G/DL (3.4-5.0); ALBUMIN/GLOBULIN RATIO 0.9 (1.1-1.5); ALKALINE PHOSPHATASE 70 IU/L (46-116); ANION GAP 7 (8-16); ASPARTATE AMINO TRANSFERASE 19 U/L (10-37); BILIRUBIN,TOTAL 0.6 MG/DL (0.1-1.0); BLOOD UREA NITROGEN 22 MG/DL (7-18); BUN/CREATININE RATIO 20.8 (10.0-20.0); CALCIUM 9.1 MG/DL (8.5-10.1); CHLORIDE 101 MMOL/L (99-107); CREATININE 1.06 MG/DL (0.60-1.10); GLUCOSE 133 MG/DL (70-104); POTASSIUM 3.9 MMOL/L (3.5-5.1); SODIUM 136 MMOL/L (135-145); TOTAL CARBON DIOXIDE 27.6 MMOL/L (24-32); TOTAL PROTEIN 6.9 G/DL (6.4-8.2); eGFR 71 ML/MIN
[2022-12-20] MEDS: metFORMIN 500mg tablet PO SCH ×2 (07:19→19:04)
[2022-12-20] MEDS: duloxetine 30mg CAPSULE.DR PO SCH (07:20)
[2022-12-20] MEDS: HYDROchlorothiazide 25mg tablet PO SCH (07:20)
[2022-12-20] MEDS: cholecalciferol (vitamin D3) 1,000 unit (25mcg) tablet PO SCH (07:20)
[2022-12-20] MEDS: buPROPion SR 150mg tablet PO SCH ×2 (07:20→19:04)
[2022-12-20] MEDS: DICLOFENAC SODIUM PO SCH (07:21)
[2022-12-20] MEDS: aspirin 325mg tablet PO SCH (07:24)
--- NOTE | 2022-12-20 13:47 | NUR ---
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 Rec: 1. change to heart healthy diet; carb restriction not indicated given A1C 6.1% w/ last 5.9% 03/2022 per EMR 2. double protein TIDWM for satiety 3. routine vitamin D3 per MD 4. routine bowel care 5. weekly wt Addendum: 12/20/22 at [address] Amended: Links added.
[2022-12-20] MEDS: ROPIVAcaine 0.2%/PF PUMP/bolus 545 ML POPLITEAL SCH (14:15)
--- NOTE | 2022-12-20 18:08 | NUR ---
Report given to Gela JOLLY
--- NOTE | 2022-12-20 18:10 | NUR ---
Patient in room ORTHO 4012. I have received report from and had the opportunity to ask questions and assume patient care.
[2022-12-20] MEDS: oxyCODONE/APAP 10/325mg tablet PO PRN (19:04)
[2022-12-20] MEDS: fenofibrate 145mg tablet PO SCH (19:11)
[2022-12-20] MEDS: sennosides 8.6mg tablet PO SCH (21:00)
[2022-12-21 06:00] VITALS: BP 100/61; PULSE 62; RESP 18; TEMP 97.6; O2SAT 95
--- NOTE | 2022-12-21 06:00 | NUR ---
Continuing AM care of patient.
[2022-12-21 07:50] VITALS: RESP 18; O2SAT 95
[2022-12-21] MEDS: DICLOFENAC SODIUM PO SCH (08:00)
[2022-12-21] MEDS: HYDROchlorothiazide 25mg tablet PO SCH (09:37)
[2022-12-21] MEDS: buPROPion SR 150mg tablet PO SCH (09:37)
[2022-12-21] MEDS: metFORMIN 500mg tablet PO SCH (09:37)
[2022-12-21] MEDS: aspirin 325mg tablet PO SCH (09:38)
[2022-12-21] MEDS: cholecalciferol (vitamin D3) 1,000 unit (25mcg) tablet PO SCH (09:38)
[2022-12-21] MEDS: duloxetine 30mg CAPSULE.DR PO SCH ×2 (09:41→10:38)
[2022-12-21 10:00] VITALS: BP 104/55; PULSE 78; RESP 15; TEMP 97.9; O2SAT 98
--- NOTE | 2022-12-21 13:00 | NUR ---
Problems reprioritized. Patient report given, questions answered & plan of care reviewed with Belen JOLLY.
--- NOTE | 2022-12-21 16:30 | NUR ---
DISCHARGE NOTE: Discharge paperwork reviewed with parents and pt. He is aware to f/u with Dr. Gonzalez and his PCP. He has a commode, crutches, and a walker that have all been delivered to his room. PIV DC'd, cannula intact, no s/sx bleeding noted. Pt. left with all of his belongings including his cell phone, crop consultant, and leg elevator. Discussed diet, using the restroom, exercise, NWB status, showers, and when to call the doctor. Pt. escorted down to his parents care with all of his stuff.
== END 2022-12-21 16:28 | disposition home health service (06) | DRG 493 ==
LOC: PAS 11:02 → ORTHO 4S 15:52
PROVIDERS: ADMIT Podiatrist Foot & Ankle Surgery; ATTEND Podiatrist Foot & Ankle Surgery
PROC: 3E0T3BZ Introduction of Anesthetic Agent into Peripheral Nerves and Plexi, Percutaneous Approach (ICD-10-PCS; 2022-12-14)
PROC: 3E0T33Z Introduction of Anti-inflammatory into Peripheral Nerves and Plexi, Percutaneous Approach (ICD-10-PCS; 2022-12-14)
PROC: 0SW Lower Joints, Revision (ICD-10-PCS; principal; 2022-12-14 13:11)
DX: T84.223A Displacement of internal fixation device of bones of foot and toes, initial encounter (principal); Z68.41 Body mass index [BMI] 40.0-44.9, adult; Y83.8 Other surgical procedures as the cause of abnormal reaction of the patient, or of later complication, without mention of misadventure at the time of the procedure; W18.39XA Other fall on same level, initial encounter; Y92.89 Other specified places as the place of occurrence of the external cause; Q66.6 Other congenital valgus deformities of feet; Z59.00 Homelessness unspecified; Y93.89 Activity, other specified; Y99.8 Other external cause status; Z79.899 Other long term (current) drug therapy
CPT/HCPCS: 36415; 73620; 76000; 80048; 80053; 81003; 83036; 85025; 97116; 97161; 97530; A4615; A4618; A6222; A6223; A6253; A6258; A6446; A6449; A7000; C1713; C1776; C9290; G0378; J0131; J0690; J1100; J1885; J2250; J2270; J2405; J2704; J2795; J3010; J3370; J3490; J7120

== ENCOUNTER 2023-05-22 18:32 | Emergency (ER) | payer MEDICARE, MEDICAID ==
[~2023-05-22] VITALS: Ht 175.3 cm; Wt 130.0 kg
[~2023-05-22 18:32] MED LIST changes: -ceFAZolin inj. 3,000 MG in normal saline 100ml IV soln 100 ML IV ONE; -famotidine 20mg tablet PO ONE
[2023-05-22 21:27] LABS: BILIRUBIN,URINE NEGATIVE (Neg); CLARITY,URINE CLEAR (Clear); COLOR,URINE YELLOW (Yellow); GLUCOSE, URINE NEGATIVE (Neg); KETONES,URINE NEGATIVE (Neg); LEUKOCYTE ESTERASE ,URINE NEGATIVE (Neg); NITRITES, URINE NEGATIVE (Neg); OCCULT BLOOD,URINE NEGATIVE (Neg); PROTEIN,URINE NEGATIVE (Neg)
[2023-05-22] MEDS ORDERED: oxyCODONE/APAP 10/325mg tablet PO ONE (21:30)
[2023-05-22] MEDS ORDERED: NICOTINE POLACRILEX 2 MG LOZENGE BC PRN (21:35)
[2023-05-22 21:43] LABS: UA COLLECTION TYPE NON-SPECIFIED
[2023-05-22 22:32] VITALS: BP 126/75; PULSE 68; RESP 16; TEMP 99.5; O2SAT 98
== END 2023-05-22 22:00 | disposition home or self-care (01) ==
LOC: ER 18:33
DX: K40.90 Unilateral inguinal hernia, without obstruction or gangrene, not specified as recurrent (principal); E11.9 Type 2 diabetes mellitus without complications
CPT/HCPCS: 74176; 81003; 99284

== ENCOUNTER 2023-06-22 12:11 | Outpatient (CLI) | payer MEDICARE, MEDICAID | END 2023-06-22 23:59 | disposition home or self-care (01) | LOC: RAD 12:11 | PROVIDERS: ATTEND Podiatrist Foot & Ankle Surgery | DX: M19.071 Primary osteoarthritis, right ankle and foot (principal); M25.471 Effusion, right ankle; M21.41 Flat foot [pes planus] (acquired), right foot; M25.571 Pain in right ankle and joints of right foot; M79.671 Pain in right foot; Z91.199 Patient's noncompliance with other medical treatment and regimen due to unspecified reason; Z98.890 Other specified postprocedural states | CPT/HCPCS: 73700 ==

== ENCOUNTER 2023-09-20 07:28 | Outpatient (CLI) | payer MEDICARE, MEDICAID | END 2023-09-20 23:59 | disposition home or self-care (01) | LOC: 64 CT 07:28 | PROVIDERS: ATTEND Surgery | DX: K40.30 Unilateral inguinal hernia, with obstruction, without gangrene, not specified as recurrent (principal) | CPT/HCPCS: 74176 ==